=== PATIENT | male | born 1930 | race Caucasian/White ===

== ENCOUNTER 2016-11-08 04:13 | Inpatient (IN) ==
[2016-11-02 11:02] LABS: HEMOGLOBIN 14.2 g/dL (14.0-18.0); MCH 32.9 PG (27-31); MCHC 34.6 g/dL (33-37); MCV 94.9 FL (81-99); MPV 12.7 FL (7.4-10.4); RBC 4.32 XMIL (4.7-6.1)
[2016-11-02 11:38] LABS: AGAP 13; BUN 21 mg/dL (8-22); CALCIUM 9.9 mg/dL (8.8-10.2); CHLORIDE 100 mmol/L (98-107); COSMO 286; SODIUM 141 mmol/L (136-145); TCO2 28 mmol/L (25-35)
[2016-11-08] MEDS ORDERED: KEFZOL 1 GM/D5W 1 GM/50 ML IVPB ONE (05:33)
[2016-11-08] MEDS ORDERED: LR 1,000 ML ONE ×2 (05:33→06:38)
[2016-11-08] MEDS ORDERED: MARCAINE 0.25% PF/EPI 1:200,000 ONE (06:37)
[2016-11-08] MEDS ORDERED: B & O 16A SUPP ONE (06:37)
[2016-11-08 08:37] LABS: URINE MICRO REVIEW NEEDED? NO; URINE SOURCE CATH
[2016-11-08 08:43] LABS: BILIRUBIN URINE NEGATIVE (NEGATIVE); BLOOD URINE MODERATE (NEGATIVE); COLOR STRAW; GLUCOSE URINE NEGATIVE (NEGATIVE); LEUKOCYTES URINE NEGATIVE (NEGATIVE); NITRITE URINE NEGATIVE (NEGATIVE); PH URINE 6.5; PROTEIN URINE NEGATIVE (NEGATIVE); SP GRAVITY URINE 1.003; TURBIDITY URINE CLEAR (CLEAR); UROBILINOGEN URINE NORMAL (NORMAL)
[2016-11-08 08:45] LABS: UR EPITHELIAL CELLS <10 /HPF (<10); URINE BACTERIA NEGATIVE /HPF; URINE RBC <10 /HPF (<10); URINE WBC <10 /HPF (<10)
[2016-11-08] MEDS ORDERED: ZOFRAN ONE (10:59)
[2016-11-08] MEDS ORDERED: NEOSTIGMINE ONE (10:59)
[2016-11-08] MEDS ORDERED: NS 1,000 ML ONE (10:59)
[2016-11-08] MEDS ORDERED: ZEMURON ONE (11:00)
[2016-11-08] MEDS ORDERED: EPHEDRINE ONE (11:00)
[2016-11-08] MEDS ORDERED: AMIDATE ONE (11:00)
[2016-11-08] MEDS ORDERED: OFIRMEV 1000 MG/ISOTONIC SOLN 1,000 MG/100 ML BOTTLE ONE (11:00)
[2016-11-08] MEDS ORDERED: XYLOCAINE-MPF 2% ONE (11:00)
[2016-11-08] MEDS ORDERED: QUELICIN (DOSE) ONE (11:00)
[2016-11-08] MEDS ORDERED: DECADRON ONE (11:00)
[2016-11-08] MEDS ORDERED: LR 2,000 ML ONE (11:00)
[2016-11-08] MEDS ORDERED: TORADOL ONE (11:00)
[2016-11-08] MEDS ORDERED: ROBINUL ONE (11:00)
[2016-11-08] MEDS ORDERED: DITROPAN PO PRN (13:18)
[2016-11-08] MEDS ORDERED: BENADRYL LIQUID PO PRN (13:18)
[2016-11-08] MEDS ORDERED: BENADRYL IV PRN (13:18)
[2016-11-08] MEDS ORDERED: MORPHINE IV PRN (13:18)
[2016-11-08] MEDS ORDERED: LABETALOL IV PRN (13:18)
[2016-11-08] MEDS ORDERED: OXY IR PO PRN (13:21)
[2016-11-08] MEDS ORDERED: PHENERGAN IV PRN (13:26)
[2016-11-08] MEDS ORDERED: PHENERGAN PR PRN (13:26)
[2016-11-08] MEDS ORDERED: SODIUM CHLORIDE 0.9% INJ PRN (13:26)
[2016-11-08] MEDS ORDERED: PHENERGAN PO PRN (13:26)
[2016-11-08] MEDS: KEFZOL 1 GM/D5W 1 GM/50 ML IVPB IV SCH ×2 (14:02→22:48)
[2016-11-08] MEDS: OFIRMEV 1000 MG/ISOTONIC SOLN 1,000 MG/100 ML BOTTLE IV SCH ×2 (14:02→18:32)
[2016-11-08] MEDS: NS 1,000 ML IV SCH ×2 (14:04→21:25)
--- NOTE | 2016-11-08 14:39 | OPERATIVE NOTE ---
PROCEDURE DATE: 11/08/2016 PREOPERATIVE DIAGNOSIS: Prostate cancer. POSTOPERATIVE DIAGNOSIS: Prostate cancer. PROCEDURE PERFORMED: Laparoscopic robot-assisted radical retropubic prostatectomy. SURGEON: Teja Trejo MD ANESTHESIA: General endotracheal. FINDINGS: Normal-appearing prostate with attached seminal vesicles and vas deferens. INDICATIONS FOR PROCEDURE: This 85-year-old male has a history of prostate cancer, Darwin grade 3 + 3, on the left and right apex and midportion of the prostate. The various treatments for prostate cancer were thoroughly discussed and he was adamant to have surgery. DESCRIPTION OF PROCEDURE: After informed consent was obtained from the patient and his and him receiving IV antibiotics, he was taken the main OR, placed in the supine position, and general anesthesia via endotracheal tube was achieved. He was then placed in the low lithotomy position and prepped and draped in the usual sterile fashion for abdominal, penile, and perineal surgery. An 18-Israeli Arroyo catheter was passed through the patient's urethra and prostate into the bladder sterilely. A pneumoperitoneum was achieved with a Veress needle placed above the umbilicus through an incision for a 12 mm port. After the Veress needle was placed, the water drop test was positive. A pneumoperitoneum was achieved with CO2 to 15 cm of water. The robot trocars were placed in the standard position with the 3rd arm just above the right anterior superior iliac spine. The assistant account executive port was placed in the left epigastric area just to the left of midline. After the ports were placed, the patient was placed in steep Trendelenburg and the table was lowered all the way down. The robot was docked. The procedure was started by taking down physiological adhesions of the descending and sigmoid colon. The 3rd arm was used to retract the sigmoid colon cephalad. An incision was made in the peritoneum as it reflected off the rectum, going up onto the anterior abdominal wall, approximately 1 cm above this reflection. The ampulla of the vas deferens and seminal vesicles were visualized. These were bluntly and sharply dissected free. The pedicle to the seminal vesicle was taken down with a clip. Both sides were accomplished similarly. Attention was then turned to the anterior abdominal wall, where an incision was made in the peritoneum just medial to the right internal inguinal ring. This was taken down to the vas deferens in the pelvis and up on the anterior abdominal wall. The left side was accomplished similarly. The medial umbilical ligaments were taken down sharply and the bladder was bluntly and sharply dissected off the anterior wall. The fibrofatty tissue on the anterior and lateral sides of the prostate was removed. The endopelvic fascia was entered lateral to the prostate and this incision was extended up to the puboprostatic ligaments and back to the base of the prostate. Both sides were accomplished similarly. The puboprostatic ligaments were taken down sharply. The levator ani muscles were bluntly dissected off the sides of the prostate. The bladder was incised in the midline on the anterior surface of the prostate and sharply dissected back off the base of the prostate. The urethra was reached and incised and the Arroyo catheter was delivered through the cystotomy. This was used as traction device. The posterior bladder neck was incised and the remaining part of the bladder was sharply dissected off the base of the prostate. The previously dissected space was entered and the ampulla of the vas and seminal vesicles were brought up through this incision and the incision was extended over to each prostatic pedicle. The prostatic pedicles were taken down with clips and the neurovascular bundle was spared, incising close to the prostate all the way to the apex of the prostate. Both sides were accomplished similarly. The dorsal vein complex was taken down using a 2-0 V-Loc suture, going around the dorsal vein complex twice and then through the periosteum off the pubis, back under the dorsal vein complex, and back through the periosteum of the pubis. The dorsal vein was incised over the apex of the prostate. The urethra was visualized and incised. A margin of about 3 mm was taken since most of the cancer was at the apex. The posterior urethra was incised. The remaining fibers of the rectourethralis muscles were incised. The specimen was then placed in an EndoCatch retrieval bag and moved out of the way. The pelvis was irrigated. The vesicovisceral fascia was attached to the posterior to the posterior rhabdosphincter with a running suture of 3-0 V-Loc. The bladder was anastomosed to the urethra with a running suture of 3-0 V-Loc suture. An 18-Israeli Arroyo catheter easily passed into the bladder. The bladder was irrigated. No clots were seen. The bladder was distended and no leakage was seen. The pneumoperitoneum was dropped to 3 cm of water. No bleeding areas were seen. The robotic trocars were removed under direct vision after moving the EndoCatch retrieval bag string out through the camera port. The table was then placed in the supine position. The camera port incision was extended for a total length of about 3.5 cm. The specimen was retrieved and sent to Pathology with a suture marking the bladder neck. The abdominal rectus fascia was reapproximated with interrupted suture of #1 Maxon. The skin was reapproximated with clips. Island dressings were placed. ESTIMATED BLOOD LOSS: 100 mL. DISPOSITION: He was taken to the recovery room, extubated and in good condition. cc: Teja Trejo MD [facility]
[2016-11-08] MEDS ORDERED: DILAUDID ONE (17:40)
[2016-11-08] MEDS ORDERED: PEPCID PO SCH (21:00)
[2016-11-08] MEDS ORDERED: PERIDEX MT SCH (21:00)
[2016-11-08] MEDS ORDERED: COLACE PO SCH (21:00)
[2016-11-09] MEDS: OFIRMEV 1000 MG/ISOTONIC SOLN 1,000 MG/100 ML BOTTLE IV SCH (01:39)
[2016-11-09 05:53] LABS: AGAP 11; BUN 25 mg/dL (8-22); CALCIUM 8.2 mg/dL (8.8-10.2); CHLORIDE 102 mmol/L (98-107); COSMO 282; HEMATOCRIT 30.6 % (42.0-52.0); HEMOGLOBIN 10.5 g/dL (14.0-18.0); MCH 32.7 PG (27-31); MCHC 34.3 g/dL (33-37); MCV 95.3 FL (81-99); POTASSIUM 4.2 mmol/L (3.5-5.1); RBC 3.21 XMIL (4.7-6.1); SODIUM 137 mmol/L (136-145); TCO2 24 mmol/L (25-35)
[2016-11-09] MEDS: NS 1,000 ML IV SCH (06:00)
[2016-11-09 07:46] VITALS: BP 142/82
[2016-11-09] MEDS ORDERED: NORVASC PO SCH (09:00)
[2016-11-09] MEDS ORDERED: PRINZIDE 10/12.5MG PO SCH (09:00)
[2016-11-09] MEDS ORDERED: VITAMIN D PO SCH (09:00)
[2016-11-09] MEDS ORDERED: ZYLOPRIM PO SCH (09:00)
[2016-11-09] MEDS ORDERED: CENTRUM SILVER PO SCH (09:00)
[2016-11-09] MEDS ORDERED: ZINC SULFATE PO SCH (09:00)
== END 2016-11-09 09:14 | disposition home or self-care (01) ==
LOC: SURHOLD 04:13 → 4N 10:53
PROVIDERS: ADMIT Urology; ATTEND Urology

== ENCOUNTER 2018-11-13 14:48 | Inpatient (IN) ==
[2018-11-13] MEDS ORDERED: NS 500 ML IV ONE (15:37)
--- NOTE | 2018-11-13 15:42 | PROVIDER DOCUMENTATION ---
HPI-Fever - General Chief Complaint: Fever Stated Complaint: FEVER,POSS DEYHDRATED Time Seen by Provider: 11/13/18 15:02 Source: patient Allergies/Adverse Reactions: Patient Allergies Allergy/AdvReac Type Severity Reaction Status Date / Time No Known Allergies Allergy Verified 11/08/16 05:34 Home Medications: Home Medication List Medication Instructions Recorded Confirmed Last Taken Type Allopurinol 150 mg PO DAILY 11/02/16 11/13/18 11/08/16 04:00 History Amlodipine [Norvasc] 10 mg PO DAILY 11/02/16 11/13/18 11/08/16 04:00 History Cholecalciferol (Vit D3) [Vitamin 2,000 unit PO DAILY 11/02/16 11/13/18 11/07/16 09:00 History D] Lisinopril/Hydrochlorothiazide 1 each PO DAILY 11/02/16 11/13/18 11/07/16 09:00 History [Lisinopril-Hctz 10-12.5 mg Tab] Multivit-Min/FA/Lycopen/Lutein 1 each PO DAILY 11/02/16 11/13/18 11/07/16 09:00 History [Centrum Silver Tablet] Zinc 50 mg PO DAILY 11/02/16 11/13/18 11/07/16 09:00 History Hydrocodone/APAP 10 mg/325 mg 1 each PO Q4H PRN #15 tablet 11/09/16 11/13/18 Unknown Rx [[place]-10] - History of Present Illness-Fever Nature of Presenting Problem: Patient is an 87 yowm who reports that he began having chills and a low-grade fever last night at [employer]. 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 His only physical complaint at this time is fatigue. Denies n/v, chest pain, SOB, cough, nasal congestion, sore throat, headache, pain of any kind, or any other symptoms. He is non-toxic in appearance. Review of Systems - Adult - REVIEW OF SYSTEMS - ADULT Constitutional: reports: see HPI, chills, fever, other (fatigue). denies: night sweats Eyes: reports: no symptoms reported Ears, Nose, Mouth & Throat: reports: no symptoms reported. denies: sinus problem, throat pain Cardiovascular: reports: no symptoms reported. denies: chest pain, edema, orthopnea, palpitations, syncope Respiratory: reports: no symptoms reported. denies: chronic cough, cough, dyspnea on exertion, excessive sputum production, hemoptysis, pleurisy, shortness of breath, wheezing Gastrointestinal: reports: no symptoms reported. denies: diarrhea, nausea, vomiting Genitourinary: reports: no symptoms reported. denies: dysuria, frequency, flank pain, urinary retention Musculoskeletal: reports: no symptoms reported Integumentary: reports: no symptoms reported Neurological: reports: no symptoms reported Psychiatric: reports: no symptoms reported Endocrine: reports: no symptoms reported Hematologic/Lymphatic: reports: no symptoms reported Allergic/Immunologic: reports: no symptoms reported All Other Systems: Reviewed and Negative Past History - Adult - PAST MEDICAL HISTORY-ADULT Review of Records: reports: Nursing Assessment Review, Medications Reviewed, Social history reviewed & non-contributory. Major Childhood Illnesses: reports: denies history Cardiovascular: reports: HTN Respiratory: reports: denies history Gastrointestinal: reports: denies history Genitourinary: reports: prostate cancer Musculoskeletal: reports: other (gout) Neurological: reports: denies history Psychiatric: reports: denies history Endocrine/Immune: reports: denies history Other Conditions: reports: denies history - PRIOR SURGERIES/PROCEDURES Surgical/Procedure History: reports: reviewed, not pertinent - FAMILY HISTORY Family History: reviewed, not pertinent - SOCIAL HISTORY Smoking: non-smoker Physical Exam-General - PHYSICAL EXAM-ADULT Initial Vital Signs Reviewed: Yes - CONSTITUTIONAL General Appearance: appears well, alert, no apparent distress. negative: le thargic, slow to respond - EYES Eyes: PERRL/EOMI, pink conjunctivae - HEAD, EARS, NOSE, MOUTH & THROAT HENMT: normocephalic/atraumatic, moist mucous membranes, normal ENT inspection, TMs normal, pharynx normal - NECK Neck: non-tender, full range of motion, supple, normal inspection - RESPIRATORY Respiratory: chest non-tender, lungs clear, normal breath sounds, no pleuratic chest pain, no respiratory distress, no accessory muscle use - CARDIOVASCULAR Cardiovascular: normal peripheral pulses, regular rate, rhythm, no edema, no gallop, no JVD, no murmur - GASTROINTESTINAL (ABDOMEN) Abdominal Exam: normal bowel sounds, non tender, soft, no organomegaly, no pulsatile mass. negative: distended, guarding, rigid, rebound, tenderness, hernia, mass, hepatomegaly, splenomegaly, McBurney's point tenderness - LYMPHATIC Lymphatic: no adenopathy - MUSCULOSKELETAL Back Exam: normal inspection, no CVA tenderness Extremity: normal range of motion, non-tender, normal gait, normal inspection - SKIN Integumentary: normal color, warm/dry. negative: cyanosis, diaphoresis, jaundi ce, mottled, pallor - NEUROLOGIC Neurologic: grossly normal, no motor/sensory deficits - PSYCHIATRIC Psych/Mental Status: normal mood/affect, normal thought content, normal thought process, oriented x 3 Progress - PLAN OF CARE/RESULTS Progress/Plan/Lab Results: Vital Signs - 8 hr 11/13/18 14:53 11/13/18 20:17 Temperature 98.1 F 97.5 F L Pulse Rate 91 H Respiratory Rate 18 Blood Pressure 152/73 O2 Sat by Pulse Oximetry 95 11/13/18 16:21 Influenza Screen - Final Nasopharyngeal Laboratory Results - last 24 hr 11/13/18 11/13/18 11/13/18 16:10 16:10 16:10 WBC 16.95 H RBC 3.80 L Hgb 12.6 L Hct 36.0 L MCV 94.7 MCH 33.2 H MCHC 35.0 RDW Std Deviation 12.5 Plt Count 151 MPV 13.0 H Immature Gran % (Auto) 0.3 Neut % (Auto) 76.8 H Lymph % (Auto) 10.0 L [place] % (Auto) 12.4 H Eos % (Auto) 0.3 Baso % (Auto) 0.2 Immature Gran # (Auto) 0.05 H Neut # (Auto) 13.01 H Lymph # (Auto) 1.70 [place] # (Auto) 2.10 H Eos # (Auto) 0.05 Baso # (Auto) 0.04 Sodium 136 Potassium 3.9 Chloride 98 Carbon Dioxide 27 Anion Gap 11 BUN 33 H Creatinine 0.9 Estimated GFR/1.73 m2 > 60 BUN/Creatinine Ratio 37 Glucose 115 H Calculated Osmolality 280 Calcium 9.4 Magnesium 1.6 Total Bilirubin 0.98 AST 20 ALT 11 Alkaline Phosphatase 58 Troponin T Mzl-[id number]-Luiofyipnwy Pept Total Protein 6.4 Albumin 3.9 Globulin 2.5 Albumin/Globulin Ratio 1.6 Plasma Lactate 0.9 Urine Source Urine Color Urine Turbidity Urine pH Ur Specific [place] Urine Protein Ur Glucose (Stick) Ur Ketones (Stick) Urine Blood Urine Nitrite Urine Bilirubin Urobilinogen Dipstick Urine Leukocytes Urine WBC (Auto) Urine RBC (Auto) U Epithel Cells (Auto) Urine Bacteria (Auto) 11/13/18 11/13/18 11/13/18 16:10 16:10 16:25 WBC RBC Hgb Hct MCV MCH MCHC RDW Std Deviation Plt Count MPV Immature Gran % (Auto) Neut % (Auto) Lymph % (Auto) [place] % (Auto) Eos % (Auto) Baso % (Auto) Immature Gran # (Auto) Neut # (Auto) Lymph # (Auto) [place] # (Auto) Eos # (Auto) Baso # (Auto) Sodium Potassium Chloride Carbon Dioxide Anion Gap BUN Creatinine Estimated GFR/1.73 m2 BUN/Creatinine Ratio Glucose Calculated Osmolality Calcium Magnesium Total Bilirubin AST ALT Alkaline Phosphatase Troponin T < 0.010 Vjb-[id number]-Xkkuasupzqv Pept 839 H Total Protein Albumin Globulin Albumin/Globulin Ratio Plasma Lactate Urine Source CLEAN CATCH Urine Color YELLOW Urine Turbidity HAZY Urine pH 5.5 Ur Specific [place] 1.016 Urine Protein 30 A Ur Glucose (Stick) NEGATIVE Ur Ketones (Stick) NEGATIVE Urine Blood SMALL A Urine Nitrite POSITIVE A Urine Bilirubin NEGATIVE Urobilinogen Dipstick NORMAL Urine Leukocytes LARGE A Urine WBC (Auto) TNTC A Urine RBC (Auto) <10 U Epithel Cells (Auto) <10 Urine Bacteria (Auto) 4+ Orders Category Date Time Status CHEST-2 VIEWS [RAD] Stat Exams 11/13/18 15:37 Completed BLOOD CULTURE [BLDCUL] Stat Lab 11/13/18 16:10 Results CBC WITH DIFF [HEME] Stat Lab 11/13/18 16:10 Completed COMPREHENSIVE METABOLIC PANEL [CHEM] Stat Lab 11/13/18 16:10 Completed INFLUENZA SCREEN A/B Stat Lab 11/13/18 16:21 Completed LACTATE, PLASMA [CHEM] Stat Lab 11/13/18 16:10 Completed LEGIONELLA AG URINE [ORLEANS] Routine Lab 11/13/18 19:20 Ordered MAGNESIUM [CHEM] Stat Lab 11/13/18 16:10 Completed PRO B-NATRIURETIC PEPTIDE Stat Lab 11/13/18 16:10 Completed STREP PNEUMO AG URINE [ORLEANS] Routine Lab 11/13/18 19:20 Ordered TROPONIN T Stat Lab 11/13/18 16:10 Completed UA NIMS W/REFLEX CULT [URINALYSIS] Stat Lab 11/13/18 16:25 Completed URINE CULTURE [RM] Routine Lab 11/13/18 17:00 Received 0.9% Sodium Chloride Inj [Ns] 500 ml Med 11/13/18 15:37 Discontinued IV 999 mls/hr Azithromycin 500 mg/Ns [Zithromax 500 mg/Ns] Med 11/13/18 19:15 Active 500 mg in 250 ml IV Q24H CefTRIAXONE [Rocephin] 1 gm Med 11/13/18 15:54 Discontinued 0.9% Sodium Chloride Inj [Ns] 50 ml IV NOW CefTRIAXONE [Rocephin] 1 gm Med 11/14/18 16:00 Active 0.9% Sodium Chloride Inj [Ns] 50 ml IV Q24H EKG [EKG] Stat Ther 11/13/18 15:37 Ordered Speech Evaluation [OM.SPT] Routine Ther 11/13/18 19:16 Active Transfer/Admit Order [TRANSFER] Routine Transfer 11/13/18 17:47 Ordered 1741- Admitting HPS paged. Pt in agreement with admission plan. Result Diagrams: 11/13/18 16:10 11/13/18 16:10 - XRAY 1 XRAY Study: Chest (IMPRESSION: Small left basilar infiltrate Electronically signed by Gabriel Addison 11/13/2018 3:48 PM) - CONSULTS/PCP/HOSPITALIST Notification #1 *Consult/PCP/Hospitalist*: LUZ ELENA Higginbotham RECORDS MANAGEMENT ENGINEER Time Discussed: 17:42 Reason/Comments: admission- UTI Consult Disposition: Will see in ED, Admit Departure - Departure Date of Disposition Decision: 11/13/18 Time of Disposition Decision: 17:44 DIAGNOSIS: UTI (urinary tract infection) Qualifiers: Urinary tract infection type: site unspecified Hematuria presence: with hematuria Qualified Code(s): N39.0 - Urinary tract infection, site not specified Disposition: ADMITTED INPATIENT 09 Certified Medical Emergency: Emergent Condition: Stable Referrals and Follow-Ups: Phu Villasenor MD [Primary Care Provider] - - Critical Care Note This patient required my direct & personal management of CC.: No Attestation - Physician/ HANS Attestation Patient care was provided by Advanced Practice Provider:: Yes Advanced Practice Provider:: Lashanda Caputo Advanced Practice Provider documentation review:: The Mid-level provider documentation, treatment plan and medical decision making was reviewed by the physician who agrees with all treatment and medical decision making by the MLP. The physician spent face to face time with patient:: No Advanced Practice Provider documentation review:: Supervising physician onsite and consulted in the evaluation and care of this patient. The physician did not have a face to face encounter with the patient.
--- NOTE | 2018-11-13 15:50 | Diag Imaging Result Doc PS360 ---
EXAM: CHEST-2 VIEWS HISTORY: fever TECHNIQUE: Chest two views COMPARISON: None. FINDINGS: The lungs are well expanded. The heart is not enlarged. The vessels are not distended. There are mild increased markings in the left lung base. No pleural effusions. IMPRESSION: Small left basilar infiltrate Electronically signed by Gabriel Addison 11/13/2018 3:48 PM
[2018-11-13] MEDS ORDERED: ROCEPHIN 1 GM in NS 50 ML IV ONE (15:54)
[2018-11-13 16:29] LABS: URINE SOURCE CLEAN CATCH
[2018-11-13 16:45] LABS: BASO# 0.04 X1000 (0.0-0.2); BASO% 0.2 % (0.0-0.8); EOS# 0.05 X1000 (0.0-0.7); EOS% 0.3 % (0.0-10.0); HEMOGLOBIN 12.6 g/dL (14.0-18.0); IMM GRAN# 0.05 X1000 (0.0-0.04); IMM GRAN% 0.3 % (0.0-0.5); MCH 33.2 PG (27-31); MCV 94.7 FL (81-99); MONO% 12.4 % (1.7-9.3); NEUT# 13.01 X1000 (1.4-6.5); NEUT% 76.8 % (42.2-75.2); PLT 151 X1000 (130-400); RDW 12.5 % (11.5-14.5); WBC 16.95 X1000 (4.8-10.8)
[2018-11-13 16:48] LABS: BILIRUBIN URINE NEGATIVE (NEGATIVE); BLOOD URINE SMALL (NEGATIVE); COLOR YELLOW; GLUCOSE URINE NEGATIVE (NEGATIVE); KETONE URINE NEGATIVE (NEGATIVE); LEUKOCYTES URINE LARGE (NEGATIVE); NITRITE URINE POSITIVE (NEGATIVE); PH URINE 5.5; PROTEIN URINE 30 mg/dL (NEGATIVE); SP GRAVITY URINE 1.016; TURBIDITY URINE HAZY (CLEAR); UR EPITHELIAL CELLS <10 /HPF (<10); URINE BACTERIA 4+ /HPF; URINE RBC <10 /HPF (<10); URINE WBC TNTC /HPF (<10); UROBILINOGEN URINE NORMAL (NORMAL)
[2018-11-13 17:01] LABS: AGAP 11; ALB/GLOB RATIO 1.6; ALBUMIN 3.9 g/dL (3.5-5.0); ALKALINE PHOSPHATASE 58 U/L (32-122); BUN 33 mg/dL (8-22); CALCIUM 9.4 mg/dL (8.8-10.2); CHLORIDE 98 mmol/L (98-107); COSMO 280; CREATININE 0.9 mg/dL (0.7-1.2); ESTIMATED GFR > 60; GLUCOSE 115 mg/dL (70-104); GOT 20 U/L (10-34); GPT 11 U/L (10-44); MAGNESIUM 1.6 mg/dL (1.5-2.7); POTASSIUM 3.9 mmol/L (3.5-5.1); SODIUM 136 mmol/L (136-145); TCO2 27 mmol/L (25-35); TOTAL BILIRUBIN 0.98 mg/dL (0.20-1.00); TOTAL PROTEIN 6.4 g/dL (6.3-8.3)
--- NOTE | 2018-11-13 18:31 | HISTORY AND PHYSICAL ---
PRIMARY CARE PHYSICIAN: Dr. Phu Villasenor. CHIEF COMPLAINT: Fever, chills, fatigue that began last night and progressively worsened. HISTORY OF PRESENTING ILLNESS: This is an 87-year-old male who presents to [facility] ER with complaints of a low-grade fever that began at yaz[employer] last night. States this morning he took his temperature and it was 102 and he took some Aleve prior to arriving. States he has also had chills and fatigue. When he arrived to the emergency room, his temperature was down to 98.1. His white blood cell count was 16.95. His urinalysis showed positive nitrites, large leukocytes, 4+ bacteria. His chest x-ray showed a small left basilar infiltrate. So, he will be admitted for further evaluation and treatment. PAST MEDICAL HISTORY: Hypertension, prostate cancer, and gout. PAST SURGICAL HISTORY: None. FAMILY HISTORY: Reviewed and noncontributory. SOCIAL HISTORY: Currently lives with family. Denies any tobacco, alcohol, or illicit drug use. ALLERGIES: He has no known drug allergies. HOME MEDICATIONS: Will need to obtain a current list, reconcile, review, and restart as appropriate. We will place an order for nursing to update and confirm home medications. LABORATORY DATA: Showed a white blood cell count of 16.95, hemoglobin 12.6, hematocrit 36, platelets 151,000. Sodium 136, potassium 3.9, chloride 98, CO2 27, BUN of 33, creatinine 0.9, glucose 115, magnesium 1.6. Troponin negative. ProBNP 839. Serum plasma lactate 0.9. Urinalysis with positive nitrites, large leukocytes, and 4+ bacteria. Chest x- ray showed a small left basilar infiltrate. REVIEW OF SYSTEMS: He was positive for a subjective fever, chills, fatigue. Denied any chest pain, coughing, shortness of breath. Denied any abdominal pain, constipation, diarrhea, burning or hurting with urination, and also denied any frequency of urination. PHYSICAL EXAMINATION: VITAL SIGNS: On arrival he had a temperature of 98.1 degrees, pulse 91, respirations 18, blood pressure 152/73, saturating 95% on room air. GENERAL: This is an 87-year-old male who is sitting up in a chair and answers questions appropriately. HENT: Normocephalic, atraumatic. Normal ENT inspection. Oropharynx and nares are clear. EYES: Pupils are equal, round, reactive to light and accommodation. Extraocular movements are intact. NECK: Normal inspection. Normal range of motion. LUNGS: Clear to auscultation bilaterally with equal lung expansion and chest wall movement. HEART: With regular rate and rhythm. No murmurs, rubs, or gallops. ABDOMEN: Soft, nontender, nondistended. Bowel sounds are present x4 quadrants. MUSCULOSKELETAL: He has 5/5 strength x4 extremities. NEUROLOGICAL: The cranial nerves 2-12 appear grossly intact. ASSESSMENT: 1. Urinary tract infection. 2. Left lower lobe pneumonia. 3. Leukocytosis. 4. Hypertension, history of. PLAN: He will be admitted to the medical unit, placed on telemetry. Placed on SCDs for DVT prophylaxis, healthy heart diet. We will place him on Rocephin 1 gram IV q.24, azithromycin 500 IV q.24, normal saline at 75 mL an hour, DuoNeb q.4 hours, Tylenol 650 mg p.o. q.6 hours p.r.n., Zofran 4 mg IV q.4 hours p.r.n. We will recheck a CBC and BMP in the a.m. and again we need to update and confirm home medications. Further orders after being seen by attending. Dictated by CARLO Diaz for Manuel Narvaez MD cc: CARLO Diaz MD Micah A. Howard, MD I agree with most components of history, physical, assessment and plan. A separate addendum has been dictated. Patient would be admitted for suspected acute pyelonephritis. [facility]
[2018-11-13] MEDS: ZITHROMAX 500 MG/NS 500 MG/250 ML IVPB IV SCH (20:22)
--- NOTE | 2018-11-13 21:16 | HISTORY AND PHYSICAL ---
ADDENDUM TO HISTORY AND PHYSICAL: Dictated by nurse practitioner. I agree with most components of history, physical, assessment and plan. In brief, Mr. Mclain is an 87-year-old man with past medical history of gout, osteoarthritis, essential hypertension, GERD who comes in with chief complaints of fever of 102 degree Fahrenheit with tingling sensation while passing urine since last one week. In the emergency room, patient was found to have leukocytosis and pyuria, so the Hospitalist Team was admitted for inpatient management considering his fever, leukocytosis, and likely urosepsis. SUBJECTIVE: At the time of my evaluation, patient is sitting in [facility]. He does mention he has been having tingling while passing urination since last one week. He denies any pain or increased frequency or nocturia, though. He does have prior history of prostate cancer status post prostatectomy many years ago. He also, his at bedside also states that he has been having some trouble swallowing dry food with coughing or choking episodes and patient mentions that he has dry cough about 2 to 3 times a week, which started about 6 weeks ago. He did have prior history of bleeding peptic ulcer disease requiring endoscopy about 30 years ago. He also mentions acid reflux. At the time of my evaluation he denies any chest pain, shortness of breath, nausea, vomiting or abdominal pain. He is a never smoker. VITALS: Suggests he is afebrile temperature of 98.1 degrees, pulse rate 91, respiratory rate 18, blood pressure 152/73 saturating 95% on room air. PHYSICAL EXAMINATION: GENERAL: Well built man, not in any acute distress. HEENT: Oral cavity is moist. LUNGS: Air entry bilaterally equal. No wheeze, rhonchi or crackles. CARDIOVASCULAR: S1, S2 normal. No murmur or gallop. ABDOMEN: Soft, nontender. He does have bilateral lower extremity edema. LABS: Suggestive of leukocytosis, normocytic anemia, normal platelet count, normal electrolytes except elevated BUN and normal creatinine. His urinalysis has large pyuria. Blood culture and urine culture is in lab. Influenza screen was negative. ASSESSMENT AND PLAN: 1. Sepsis, likely due to urinary tract infection. 2. Suspected aspiration pneumonitis. 3. History of essential hypertension. 4. Chronic GERD. 5. Chronic gout. PLAN: I will start patient on intravenous fluids, intravenous antibiotics. Will follow up with urine culture, blood culture results. I will also have speech evaluation for his choking and dysphagia episodes. Plan of care discussed with the patient and his at bedside who is surrogate decision maker. All of her questions have been answered. cc: Manuel Narvaez MD
[2018-11-13] MEDS ORDERED: ZOFRAN IV PRN (22:04)
[2018-11-13] MEDS ORDERED: NORCO-10 PO PRN (22:04)
[2018-11-13] MEDS ORDERED: DUONEB (A & A) INH PRN (22:04)
[2018-11-13] MEDS: NS 1,000 ML IV SCH (22:24)
[2018-11-14 07:56] LABS: BASO# 0.03 X1000 (0.0-0.2); BASO% 0.2 % (0.0-0.8); EOS# 0.01 X1000 (0.0-0.7); EOS% 0.1 % (0.0-10.0); HEMATOCRIT 33.1 % (42.0-52.0); HEMOGLOBIN 11.5 g/dL (14.0-18.0); IMM GRAN# 0.05 X1000 (0.0-0.04); IMM GRAN% 0.3 % (0.0-0.5); LYMPH# 1.42 X1000 (1.2-3.4); LYMPH% 8.8 % (20.5-51.1); MCH 32.9 PG (27-31); MCHC 34.7 g/dL (33-37); MCV 94.6 FL (81-99); MONO# 1.73 X1000 (0.11-0.59); MONO% 10.7 % (1.7-9.3); MPV 12.9 FL (7.4-10.4); NEUT% 79.9 % (42.2-75.2); PLT 147 X1000 (130-400); RDW 12.4 % (11.5-14.5); WBC 16.14 X1000 (4.8-10.8)
[2018-11-14 08:17] LABS: AGAP 12; BUN 28 mg/dL (8-22); CALCIUM 8.5 mg/dL (8.8-10.2); CHLORIDE 103 mmol/L (98-107); COSMO 285; CREATININE 0.8 mg/dL (0.7-1.2); ESTIMATED GFR > 60; GLUCOSE 126 mg/dL (70-104); POTASSIUM 3.7 mmol/L (3.5-5.1); SODIUM 139 mmol/L (136-145); TCO2 24 mmol/L (25-35)
[2018-11-14] MEDS: PRINZIDE 10/12.5MG PO SCH (08:56)
[2018-11-14] MEDS: THERA M PLUS PO SCH (08:56)
[2018-11-14] MEDS: NORVASC PO SCH (08:56)
[2018-11-14] MEDS: VITAMIN D PO SCH (08:56)
[2018-11-14] MEDS: ZYLOPRIM PO SCH (08:57)
[2018-11-14] MEDS: TYLENOL PO PRN ×2 (08:57→17:24)
--- NOTE | 2018-11-14 09:55 | PROGRESS NOTE ---
DATE: 11/14/2018 SUBJECTIVE: The patient is sitting up in bed, talking with . No complaints noted at this time. States he does still have some tingling with urination. OBJECTIVE: Temperature 101.5 degrees, pulse 84, respirations 16, blood pressure 154/52, saturating 94% on room air. General: This is an 88-year-old male who is sitting up in the bed and answers questions appropriately. HEENT: Normocephalic, atraumatic. Normal ENT inspection. Oropharynx and nares are clear. Neck: Normal inspection. Normal range of motion. Lungs: Clear to auscultation bilaterally with equal lung expansion and chest wall movement. Heart: With regular rate and rhythm. No murmurs, rubs, or gallops. Abdomen: Soft, nontender, nondistended. Bowel sounds are present x4 quadrants. Musculoskeletal: He has 5/5 strength x4 extremities. Neurological: The cranial nerves 2-12 appear grossly intact. Laboratory Data: White blood cell count 16.14, hemoglobin 11.5, hematocrit 33.1, platelets 147,000. Sodium 139, potassium 3.7, chloride 103, CO2 24, BUN of 28, creatinine 0.8, glucose 126. Urine culture preliminary is growing a gram-negative justin, greater than 100,000 colony count. ASSESSMENT: 1. Sepsis, likely due to gram-negative justin urinary tract infection. 2. Gram-negative justin urinary tract infection. 3. Suspected aspiration pneumonitis. 4. History of essential hypertension. 5. Chronic gastroesophageal reflux disease. PLAN: He continues on day 2 of Rocephin 1 g IV q.24 and azithromycin 500 IV q.24. Continue normal saline at 75 mL an hour. We will continue his breathing treatments q.6 p.r.n. Continue his home medications. Recheck a CBC and BMP in the a.m. I will discuss with attending his fever this morning and little change in his white blood cell count, and may need to adjust his antibiotics but we will do that after discussing with attending. Dictated by CARLO Diaz for Manuel Narvaez MD cc: CARLO Diaz MD I agree with the components of progress note mentioned above. A separate addendum has been dictated. [facility] AND MEDICAL CENTERDipesh
[2018-11-14] MEDS ORDERED: PROTONIX PO ONE (13:06)
--- NOTE | 2018-11-14 13:56 | Diag Imaging Result Doc PS360 ---
EXAM: CT ABD/PELVIS W/IV CONT ONLY INDICATION: Rule out pyelonephritis TECHNIQUE: This exam was performed using automated exposure control, adjustment of mA or kV according to patient size, and/or use of iterative reconstruction technique. COMPARISON: None. FINDINGS: There is mild subsegmental atelectasis and/or scarring at the lung bases. The gallbladder is contracted and is unremarkable, otherwise. The liver, spleen, and pancreas are unremarkable. There are fairly low dense adrenal nodules bilaterally, nonspecific but statistically most likely adrenal adenomas. There is vague heterogeneous enhancement of both kidneys, which would be consistent with pyelonephritis. No well-defined renal mass is identified. There is no hydronephrosis. The urinary bladder is grossly unremarkable. There is trace free fluid layering in the pelvis. There is uncomplicated diverticulosis coli. There is a small hiatal hernia and there is some fluid in the distal esophagus suggesting gastroesophageal reflux. No focal bowel wall thickening or bowel obstruction is identified. There is extensive aortoiliac atherosclerotic calcification. There is no evidence of aortic aneurysm. There is lumbar spondylosis. The bony structures are grossly intact. IMPRESSION: 1.Vague patchy hypoenhancement involving both kidneys consistent with pyelonephritis. 2.Other incidental/nonacute findings detailed above. Electronically signed by Darron Mishra 11/14/2018 1:53 PM
[2018-11-14] MEDS: NS 1,000 ML IV SCH (14:16)
[2018-11-14] MEDS ORDERED: NS 1,000 ML IV SCH (14:36)
--- NOTE | 2018-11-14 14:58 | PROGRESS NOTE ---
DATE: 11/14/2018 ADDENDUM: I agree with most components of the progress note. SUBJECTIVE: Patient is complaining of no new complaints. No chest pain. No shortness of breath. He states that [facility] had recommended outpatient Gastroenterology evaluation. He also had a fever spike yesterday. I discussed with him about suspicion for pyelonephritis and getting a CT scan of the abdomen. I answered all of the questions. OBJECTIVE: Vital signs: Currently temperature is 101.5 degrees, pulse 79, respiratory rate 15, blood pressure 140/68. He is saturating 90 to 94 percent on room air. General: Not in any acute distress. Abdomen: He does not have any flank tenderness. Lungs: He does have mild bilateral crackles. ASSESSMENT: 1. Sepsis due to urinary tract infection. I will follow up with CT scan to rule out acute pyelonephritis. 2. Suspected aspiration pneumonitis. A CT scan might also be able to evaluate the lower part of the lungs. 3. History of essential hypertension. 4. Chronic gastroesophageal reflux disease. 5. Chronic gout. PLAN: Continue current antibiotics, intravenous fluids, and follow up CT. Follow up urine culture which is growing gram-negative justin, with blood culture as well. I discussed the plan with the patient's . cc: Manuel Narvaez MD
[2018-11-14] MEDS ORDERED: ROCEPHIN 1 GM in NS 50 ML IV SCH (16:00)
[2018-11-14] MEDS ORDERED: ROCEPHIN 2 GM in NS 50 ML IV SCH (16:00)
[2018-11-14] MEDS: MAXIPIME 2 GM in NS 100 ML IV SCH (18:10)
[2018-11-14] MEDS: ZITHROMAX 500 MG/NS 500 MG/250 ML IVPB IV SCH (19:06)
[2018-11-15] MEDS: TYLENOL PO PRN ×2 (02:10→16:23)
[2018-11-15] MEDS: MAXIPIME 2 GM in NS 100 ML IV SCH ×2 (05:14→18:41)
[2018-11-15] MEDS: PROTONIX PO SCH (06:16)
[2018-11-15] MEDS: NORVASC PO SCH (09:46)
[2018-11-15] MEDS: VITAMIN D PO SCH (09:46)
[2018-11-15] MEDS: ZYLOPRIM PO SCH (09:46)
[2018-11-15] MEDS: THERA M PLUS PO SCH (09:46)
[2018-11-15] MEDS: PRINZIDE 10/12.5MG PO SCH (09:47)
--- NOTE | 2018-11-15 11:05 | PROGRESS NOTE ---
DATE: 11/15/2018 SUBJECTIVE: Patient is sitting up in bed resting quietly. No complaints voiced. States he is no longer feeling a "tingling" when he urinates. OBJECTIVE: Vital Signs: Temperature 98.6 degrees, pulse 65, respirations 18, blood pressure 155/54, satting 93% on room air. General: This is an 88-year-old male, who is sitting up in the bed and answers questions appropriately. HENT: Normocephalic, atraumatic. Normal ENT inspection. Oropharynx and nares are clear. Eyes: Pupils are equal, round and reactive to light and accommodation. Extraocular movements are intact. Neck: Normal inspection, normal range of motion. Lungs: Clear to upper lobes bilaterally, decreased to bilateral bases, but equal lung expansion, chest wall movement noted. Heart: With regular rate and rhythm. No murmurs, rubs, or gallops. Abdomen: Soft, nontender, nondistended. Bowel sounds are present x4 quadrants Musculoskeletal: He moves all extremities well. Neurological: He is alert and oriented x3. LABORATORY DATA: A CBC and a BMP are pending at this time. We did check a CT of the abdomen and pelvis yesterday afternoon that showed an impression of a vague patchy hypo enhancement involving both kidneys consistent with pyelonephritis. ASSESSMENT: 1. Sepsis due to acute pyelonephritis. We continue with his intravenous antibiotics. Urine culture final sensitivity is pending; preliminary continues to show gram- negative rods. We will recheck a complete blood count and basic metabolic panel this morning, and those results are pending at this time. So, we will follow up on that. 2. A suspected aspiration pneumonitis. Continue his intravenous antibiotics. He had a speech evaluation that showed he demonstrated some possible pharyngoesophageal dysphagia due to possibly gastroesophageal reflux disease. Recommend a Gastroenterology consultation for gastroesophageal reflux disease symptoms and possible esophageal stricture. So, we will consult Gastroenterology to follow up on that. 3. History of essential hypertension. Continue home medications. 4. Chronic gastroesophageal reflux disease. Again, we are going to consult Gastroenterology. He continues on his proton pump inhibitor. 5. Chronic gout. PLAN: I reviewed all current laboratory data and test results with the patient and the patient's . They verbalized understanding. Further input and orders after seen by attending. Dictated by CARLO Diaz for Manuel Narvaez MD cc: CARLO Diaz MD I agree with most components of progress note mentioned above. I had a face to face encounter with him. Today, he is feeling better. Denies shortness of breath. Tingling in urination is better. On vitals, he still has fever. On physical, no costovertebral angle tenderness. I will cotinue IV cefepime, which I had changed from Ceftriaxone considering his persistent fever. I will follow up final urine culture. Plan of care discussed with patient and his at bedside. All of their questions have been answered. WOLF
[2018-11-15 11:31] LABS: BASO# 0.05 X1000 (0.0-0.2); BASO% 0.4 % (0.0-0.8); EOS% 0.8 % (0.0-10.0); HEMATOCRIT 36.7 % (42.0-52.0); HEMOGLOBIN 12.7 g/dL (14.0-18.0); IMM GRAN# 0.09 X1000 (0.0-0.04); IMM GRAN% 0.7 % (0.0-0.5); LYMPH% 9.6 % (20.5-51.1); MCH 32.6 PG (27-31); MCHC 34.6 g/dL (33-37); MCV 94.1 FL (81-99); MONO# 1.18 X1000 (0.11-0.59); MONO% 9.4 % (1.7-9.3); MPV 12.4 FL (7.4-10.4); NEUT# 9.91 X1000 (1.4-6.5); NEUT% 79.1 % (42.2-75.2); PLT 141 X1000 (130-400); RDW 12.4 % (11.5-14.5); WBC 12.53 X1000 (4.8-10.8)
[2018-11-15 11:48] LABS: AGAP 12; BUN 26 mg/dL (8-22); CALCIUM 8.2 mg/dL (8.8-10.2); CHLORIDE 103 mmol/L (98-107); COSMO 287; ESTIMATED GFR > 60; GLUCOSE 175 mg/dL (70-104); POTASSIUM 3.4 mmol/L (3.5-5.1); SODIUM 139 mmol/L (136-145); TCO2 24 mmol/L (25-35)
[2018-11-15] MEDS: POTASSIUM CHLORIDE 20 MEQ/SWI 20 MEQ/100 ML IVPB IV SCH ×2 (14:46→20:38)
--- NOTE | 2018-11-15 17:09 | GASTROENTEROLOGY CONSULTATION ---
DATE: 11/15/2018 REASON FOR CONSULTATION: Dysphagia, chronic GERD. HISTORY OF PRESENT ILLNESS: This is an 88-year-old male who presented to the hospital with complaints of fever, chills, and fatigue. On evaluation, he was found to have pyelonephritis. He has been started on antibiotics. During his workup, it was reported that he has had increased heartburn and reflux and has had issues with dysphagia. Per patient's report, this is a chronic issue. It has been going on for several years. He normally takes Zantac 75 mg every night. At times he will have heartburn or reflux that he has to take additional Tums medication. He states there are times when he feels like food gets stuck in the mid chest. There have been 1 to 2 episodes over the last year where he has had to induce vomiting to relieve the obstruction. He states those episodes have happened less frequently since he has been watching what he eats and trying to take smaller bites and chew his foods well and drink between bites. He has had an EGD, but he states it is been over 30 years ago. He reports having a colonoscopy approximately [address] Laureano in [place]. He currently denies odynophagia and has tolerated a diet without problems. He had a speech evaluation done at bedside. He was advised on antireflux measures. PAST MEDICAL HISTORY: Hypertension, history of prostate cancer, history of gout. PAST SURGICAL HISTORY: None reported. ALLERGIES: No known drug allergies. HOME MEDICATIONS: Allopurinol 150 mg daily, Norvasc 10 mg daily, vitamin D 2000 units daily, [place] 10 every 4 hours as needed, lisinopril/hydrochlorothiazide 10/12.5 mg daily, multivitamin 1 daily, zinc 50 mg daily. SOCIAL HISTORY: He is . Denies tobacco or alcohol use. REVIEW OF SYSTEMS: Per history of present illness. PHYSICAL EXAMINATION: Vital Signs: Temperature 98.5 degrees, pulse 79, respirations 18, blood pressure 154/48. General: Patient is awake, alert, no acute distress. HEENT: Normocephalic, atraumatic. Pupils equal, round, reactive to light. Sclerae nonicteric. Cardiovascular: Regular rate and rhythm. Respiratory: Lung sounds essentially clear. Abdomen: Soft, nontender. Positive bowel sounds. Neurologic: Cranial nerves 2-12 grossly intact. Extremities: No lower extremity edema noted. DIAGNOSTIC RESULTS: Laboratory: Hematology: WBC 12.53, decreased from 16.95 on admission. Hemoglobin 12.7, hematocrit 36.7, MCV 94.1, platelets 141,000. Chemistry: Sodium 139, potassium 3.4, chloride 103, CO2 24, BUN 26, creatinine 1.0, glucose 175, calcium 8.2. Imaging: Chest x-ray showed small left basilar infiltrate. Abdominal pelvis CT scan showed vague patchy hypoenhancement involving both kidneys consistent with pyelonephritis. Also noted to have uncomplicated diverticulosis, small hiatal hernia, and some fluid in the distal esophagus suggesting gastroesophageal reflux. ASSESSMENT AND PLAN: 1. Sepsis, on antibiotics. 2. Acute pyelonephritis, on antibiotics. 3. Questionable aspiration pneumonia. Patient had speech evaluation showing possible dysphagia due to gastroesophageal reflux disease. Patient has been on a low-dose H2 receptor antagonist. Recommend to continue PPI that was started on admission. Follow strict anti- reflux measures. Will proceed with a modified barium swallow for further evaluation. At present time, would hold off proceeding with EGD until his infection has resolved. That can be scheduled as an outpatient. I have given him our contact information to follow up as an outpatient. Further plans will be made according to modified barium swallow results. 4. Chronic gastroesophageal reflux disease. Continue PPI. Plan as noted above. Continue to eat small bites, drink between bites, chew food well, follow strict antireflux measures. I have discussed this case with Dr. Bello. Further plans will be made as needed. Thank you for this consultation. Dictated by CARLO Wade for Isaiah Bello MD cc: CARLO Mcwilliams MD
[2018-11-15] MEDS: ZITHROMAX 500 MG/NS 500 MG/250 ML IVPB IV SCH (22:43)
[2018-11-16] MEDS: MAXIPIME 2 GM in NS 100 ML IV SCH (05:52)
[2018-11-16] MEDS: PROTONIX PO SCH (06:03)
[2018-11-16 07:39] LABS: BASO# 0.06 X1000 (0.0-0.2); BASO% 0.6 % (0.0-0.8); EOS# 0.29 X1000 (0.0-0.7); HEMATOCRIT 33.4 % (42.0-52.0); HEMOGLOBIN 11.7 g/dL (14.0-18.0); IMM GRAN# 0.12 X1000 (0.0-0.04); IMM GRAN% 1.2 % (0.0-0.5); LYMPH# 1.68 X1000 (1.2-3.4); LYMPH% 17.4 % (20.5-51.1); MCH 32.6 PG (27-31); MONO# 1.28 X1000 (0.11-0.59); MONO% 13.3 % (1.7-9.3); MPV 12.4 FL (7.4-10.4); NEUT# 6.23 X1000 (1.4-6.5); NEUT% 64.5 % (42.2-75.2); PLT 145 X1000 (130-400); RBC 3.59 XMIL (4.7-6.1); RDW 12.3 % (11.5-14.5); WBC 9.66 X1000 (4.8-10.8)
[2018-11-16 08:01] LABS: AGAP 10; BUN 24 mg/dL (8-22); CHLORIDE 104 mmol/L (98-107); COSMO 281; CREATININE 0.9 mg/dL (0.7-1.2); ESTIMATED GFR > 60; GLUCOSE 120 mg/dL (70-104); MAGNESIUM 1.9 mg/dL (1.5-2.7); POTASSIUM 3.6 mmol/L (3.5-5.1); SODIUM 138 mmol/L (136-145); TCO2 24 mmol/L (25-35)
[2018-11-16] MEDS: PRINZIDE 10/12.5MG PO SCH (08:49)
[2018-11-16] MEDS: ZYLOPRIM PO SCH (08:49)
[2018-11-16] MEDS: VITAMIN D PO SCH (08:49)
[2018-11-16] MEDS: THERA M PLUS PO SCH (08:50)
[2018-11-16] MEDS: NORVASC PO SCH (08:50)
--- NOTE | 2018-11-16 10:14 | PROGRESS NOTE ---
DATE: 11/16/2018 SUBJECTIVE: This patient is lying comfortably in bed. He is complaining of some abdominal discomfort but no pain, no CVA tenderness. No fever, no chills. White blood cell actually trending down. Low-grade fever at 4 a.m. at 100.1. We do have a positive urine culture that showed ESBL E-coli, I have stopped his previous antibiotics. He was getting cefepime and I have placed this patient on ertapenem. OBJECTIVE: Vital Signs: Temperature 99.7 degrees, pulse 77, respiratory rate 18, blood pressure 156/49, oxygen saturation 98 on room air. HEENT: Head normocephalic, no trauma. PERRLA. Neck: Supple. No JVD. No masses. Central trachea. Chest: Clear to auscultation. No wheezing. No rales. Abdomen: Soft. Some tenderness to palpation at the level of the periumbilical area. No CVA tenderness. Extremities: No edema, no clubbing, no cyanosis. Neurological: The patient is alert and oriented x3. No focal deficits. LABORATORY: WBC 9.6, hemoglobin 11.7, hematocrit 33.4, platelets 145,000. Sodium 138, potassium 3.6, chloride 104, bicarbonate 24, BUN 24, creatinine 0.9, glucose 120, calcium 8, magnesium 1.9. ASSESSMENT AND PLAN: 1. Sepsis due to pyelonephritis, bilaterally. We do have a positive urine culture that showed extended spectrum beta lactamase Escherichia coli. I have stopped the cefepime and placed this patient on ertapenem. Also we will isolate this patient, case has been discussed with the patient, he agreed with the treatment. 2. Suspect suspected aspiration pneumonitis. Gastroenterology department has scheduled a barium swallow today. We will monitor this closely. 3. History of hypertension. Continue with same management. 4. Gastroesophageal reflux disease. Continue with proton pump inhibitors. 5. Gout, continue with Allopurinol. cc: Jeff Umanzor MD
--- NOTE | 2018-11-16 11:27 | Diag Imaging Result Doc PS360 ---
BA SWALLOW W/VIDEO SPEECH THER - 11/16/2018 INDICATION: gerd, dysphagia, hx possible aspiration TECHNIQUE: Total fluoroscopy time was 28 seconds. 113 images were obtained. COMPARISON: None FINDINGS: There is a normal swallowing mechanism. No aspiration or penetration. There was moderate hypertrophy of the cricopharyngeus muscle compatible with cricopharyngeal achalasia. However there is no significant delay in clearance of the pharynx. At the distal esophagus, there is significant delay in clearance. There is significant tertiary wave formation throughout the esophagus. There is to and fro peristalsis. 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 This causes retention of material, even when the patient is upright. 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 Electronically signed by Sergei Nick 11/16/2018 11:25 AM
[2018-11-16] MEDS: INVANZ 1 GM/NS 1 GM/50 ML IVPB IV SCH (11:33)
[2018-11-17] MEDS: ZITHROMAX 500 MG/NS 500 MG/250 ML IVPB IV SCH ×3 (00:55→23:18)
[2018-11-17] MEDS: PROTONIX PO SCH (06:17)
[2018-11-17 07:26] LABS: BASO# 0.08 X1000 (0.0-0.2); BASO% 0.9 % (0.0-0.8); EOS# 0.55 X1000 (0.0-0.7); EOS% 6.4 % (0.0-10.0); HEMATOCRIT 32.5 % (42.0-52.0); HEMOGLOBIN 11.4 g/dL (14.0-18.0); IMM GRAN# 0.14 X1000 (0.0-0.04); IMM GRAN% 1.6 % (0.0-0.5); LYMPH# 2.14 X1000 (1.2-3.4); LYMPH% 24.9 % (20.5-51.1); MCH 32.5 PG (27-31); MCHC 35.1 g/dL (33-37); MCV 92.6 FL (81-99); MONO% 15.2 % (1.7-9.3); MPV 12.2 FL (7.4-10.4); NEUT# 4.37 X1000 (1.4-6.5); PLT 159 X1000 (130-400); RBC 3.51 XMIL (4.7-6.1); RDW 12.2 % (11.5-14.5); WBC 8.58 X1000 (4.8-10.8)
[2018-11-17 07:56] LABS: AGAP 8; BUN 21 mg/dL (8-22); CALCIUM 7.7 mg/dL (8.8-10.2); CHLORIDE 105 mmol/L (98-107); COSMO 281; CREATININE 0.9 mg/dL (0.7-1.2); ESTIMATED GFR > 60; GLUCOSE 110 mg/dL (70-104); POTASSIUM 3.5 mmol/L (3.5-5.1); SODIUM 139 mmol/L (136-145); TCO2 26 mmol/L (25-35)
[2018-11-17] MEDS: PRINZIDE 10/12.5MG PO SCH (09:14)
[2018-11-17] MEDS: NORVASC PO SCH (09:14)
[2018-11-17] MEDS: INVANZ 1 GM/NS 1 GM/50 ML IVPB IV SCH (09:14)
[2018-11-17] MEDS: THERA M PLUS PO SCH (09:14)
[2018-11-17] MEDS: ZYLOPRIM PO SCH (09:14)
[2018-11-17 09:28] LABS: INR 1.12; PROTIME 15.3 Seconds (11.0-16.0)
[2018-11-17] MEDS ORDERED: NS 250 ML ONE (09:35)
--- NOTE | 2018-11-17 09:53 | PROGRESS NOTE ---
DATE: 11/17/2018 SUBJECTIVE: This patient is feeling better. No fever for the past 24 hours. He had a low-grade fever yesterday at 4:00 in the morning. We have a positive culture that showed ESBL E. coli urinary tract infection. I will place a PICC line today so she can go home with ertapenem. Hopefully, he can be discharged in the morning. OBJECTIVE: Vital Signs: Temperature 98.4 degrees, pulse 72, respiratory rate 14, blood pressure 142/54, and oxygen saturation 94% on room air. HEENT: Head normocephalic. No trauma. PERRLA. Neck: Supple. No JVD. No masses. Central trachea. Chest: Clear to auscultation. No wheezing. No rales. Abdomen: Soft. Mild discomfort to palpation at the level of the periumbilical area. No CVA tenderness. Extremities: No edema. No clubbing. No cyanosis. Neurological: The patient is alert and oriented x3. No focal deficits. LABORATORY: WBC 8.5, hemoglobin 11.4, hematocrit 32.5, and platelets 159,000. Sodium 139, potassium 3.5, chloride 105, bicarbonate 26, BUN 21, creatinine 0.9, glucose 110, and calcium 7.7. ASSESSMENT AND PLAN: 1. Sepsis due to pyelonephritis bilaterally. We have a positive urine culture that showed ESBL E. coli. I have placed this patient on ertapenem. The plan is to place a PICC line today, and hopefully discharge this patient in the morning. We will set up the medications. 2. Suspected aspiration pneumonitis. Gastroenterology department following this patient closely. We did a modified swallow evaluation that showed presbyesophagus with mild to and fro peristalsis. This causes retention of material even when the patient is upright. 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 Case has been discussed with the Gastroenterology Department. They are planning to do an endoscopy as an outpatient. 3. 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 Planning to do an EGD probably as an outpatient. 4. History of hypertension. Continue with same management. 5. Gastroesophageal reflux disease. Continue with proton pump inhibitors. 6. Gout. Continue with allopurinol. cc: Jeff Umanzor MD
--- NOTE | 2018-11-17 13:40 | GASTROENTEROLOGY PROGRESS NOTE ---
DATE: 11/17/2018 SUBJECTIVE: Patient currently denies complaints. He is currently being treated for ESBL Escherichia coli urinary tract infection. He is in isolation. I believe plans are for him to have a PICC line placed and then discharged on home antibiotics. Patient had a modified barium swallow on 11/16/2018. Findings showed presbyesophagus with mid to and fro peristalsis causing retention of material even when the patient is upright with moderate cricopharyngeal achalasia without delay in clearance of the pharynx. Patient is currently tolerating his diet. OBJECTIVE: Vital Signs: Temperature 98.4 degrees, pulse 72, respirations 14, blood pressure 142/54. LABORATORY: Hematology. WBC 8.58, hemoglobin 11.4, hematocrit 32.5, MCV 92.6, platelet 159,000. Chemistry. Sodium 139, potassium 3.5, chloride 105, CO2 26, BUN 21, creatinine 0.9, glucose 110, calcium 7.7. ASSESSMENT AND PLAN: 1. Extended spectrum beta-lactamase Escherichia coli urinary tract infection on antibiotics. 2. Gastroesophageal reflux disease, dysphagia. Patient has had barium swallow. Results as dictated above. We will plan to see the patient as an outpatient and we will most likely proceed with an EGD once his current active infectious process has resolved. Patient voices understanding. I have discussed this case with Dr. Bello. Again we will plan for EGD as an outpatient. Dictated by CARLO Wade for Isaiah Bello MD cc: CARLO Mcwilliams MD
[2018-11-17] MEDS: VITAMIN D PO SCH (14:01)
[2018-11-18] MEDS: PROTONIX PO SCH (06:49)
[2018-11-18 07:51] LABS: AGAP 10; BUN 20 mg/dL (8-22); CALCIUM 8.3 mg/dL (8.8-10.2); CHLORIDE 107 mmol/L (98-107); COSMO 288; CREATININE 0.8 mg/dL (0.7-1.2); ESTIMATED GFR > 60; GLUCOSE 111 mg/dL (70-104); SODIUM 143 mmol/L (136-145); TCO2 26 mmol/L (25-35)
[2018-11-18 08:06] VITALS: BP 148/78
[2018-11-18] MEDS: NORVASC PO SCH (10:04)
[2018-11-18] MEDS: VITAMIN D PO SCH (10:04)
[2018-11-18] MEDS: INVANZ 1 GM/NS 1 GM/50 ML IVPB IV SCH (10:04)
[2018-11-18] MEDS: ZYLOPRIM PO SCH (10:04)
[2018-11-18] MEDS: THERA M PLUS PO SCH (10:04)
[2018-11-18] MEDS: PRINZIDE 10/12.5MG PO SCH (10:04)
--- NOTE | 2018-11-18 20:34 | DISCHARGE SUMMARY ---
ADMISSION DATE: 11/13/2018 DISCHARGE DATE: 11/18/2018 PRIMARY CARE PHYSICIAN: Dr. Phu Villasenor. ADMISSION DIAGNOSES: 1. Urinary tract infection. 2. Left lower lobe pneumonia. 3. Leukocytosis. 4. History of hypertension. DISCHARGE DIAGNOSES: 1. Sepsis due to bilateral pyelonephritis with positive extended spectrum beta-lactamase Escherichia coli urinary tract infection. 2. A suspected aspiration pneumonitis. 3. 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 4. History of hypertension. 5. Gastroesophageal reflux disease. 6. Gout. SUMMARY OF FINDINGS: This is an 88-year-old male who presented to the ER with a low-grade fever that began while he was at [employer] the night prior, on the morning of arrival his temperature was 102 degrees. He took some Aleve prior to arriving had chills and fatigue, when he arrived to the emergency room his temperature was down to 98.1, white blood cell count was 16.96. Urinalysis showed positive nitrites, large leukocytes, 4+ bacteria. Chest x-ray showed a small left basilar infiltrate. The patient's stated that he had been having some issues with swallowing and choking and coughing with eating. We ordered a modified barium swallow per speech therapy that found he had presbyesophagus with mild to and fro peristalsis with retention of material even when the patient is upright, moderate cricopharyngeal achalasia without delay in clearance of the pharynx and we consulted GI who has been following this patient. We also did a CT of the abdomen and pelvis and found that he had findings consistent with bilateral pyelonephritis. His urine culture grew out an ESBL E coli for which he has been placed on ertapenem 1 gram IV q.24 and he will continue that for the next 2 weeks then he will follow up with Infectious Disease after he has completed the antibiotic therapy. GI continue him on his PPI and they want to see him in the outpatient setting in approximately a month once his infections have cleared up to discuss possible EGD and it is now felt that he can safely be discharged home. DISCHARGE MEDICATIONS: Allopurinol 150 mg p.o. daily, amlodipine 10 mg p.o. daily, vitamin D3 2000 units p.o. daily, [place] 10 one p.o. q.4 hours p.r.n., lisinopril/hydrochlorothiazide 04/21.5 one p.o. daily, multivitamin p.o. daily, prescription for Protonix 40 mg p.o. daily and zinc 50 mg p.o. daily. He will have home infusion for his ertapenem 1 gram IV q.24 for 14 days via his PICC line. FOLLOWUP: He will need to follow up with his primary care physician in the next 1 to 2 weeks. He will follow up with Dr. Saucedo from Infectious Disease in 2 weeks upon completion of his IV antibiotics and he will follow up with GI in 1 month to discuss an EGD. TIME SPENT: 35 minutes. Dictated by CARLO Diaz for Jeff Umanzor MD cc: MD Jeff Dick MD
== END 2018-11-18 12:10 | disposition home health service (06) | DRG 871 ==
LOC: ED 14:48 → 3N 21:05 → SUATTDRO 21:05 → 3N 11-15 01:07
PROVIDERS: ATTEND Internal Medicine
CPT/HCPCS: 36569; 71020; 71046; 74177; 74230; 80048; 80053; 81001; 83605; 83735; 83880; 84484; 85025; 85610; 87040; 87077; 87088; 87186; 87275; 87276; 87449; 87804; 87899; 92611; 93005; 94640; 96365; 96367; 99285; A9270; J0456; J0692; J0696; J1335; J3480; J7030; J7040; J7050; Q9967